=== PATIENT | male | born 1990 | race Caucasian/White ===

== ENCOUNTER 2019-05-03 21:59 | Emergency (ER) | payer OTHER ==
[~2019-05-03] VITALS: Ht 182.9 cm; Wt 97.0 kg
[2019-05-03] MEDS ORDERED: RA M10TA PO (22:23)
[2019-05-03] MEDS ORDERED: BENA25CA4 PO (22:23)
[2019-05-03] MEDS ORDERED: IBUP-1114 PO (22:23)
[2019-05-04] MEDS ORDERED: diphenhydrAMINE 50 MG CAP PO ONE
[2019-05-04 06:30] VITALS: BP 125/82
== END 2019-05-04 06:32 ==
LOC: M ED 21:59
DX: R45.851 Suicidal ideations (principal); R50.9 Fever, unspecified; F32.9 Major depressive disorder, single episode, unspecified; F17.200 Nicotine dependence, unspecified, uncomplicated; Z56.3 Stressful work schedule; Z79.899 Other long term (current) drug therapy